=== PATIENT | male | born 2000 | race Caucasian/White ===

== ENCOUNTER 2024-02-06 23:56 | Emergency (ER) | payer OTHER ==
[2024-02-07 00:10] VITALS: BP 145/87; PULSE 89; RESP 18; TEMP 99.4; BMI 34.3
[2024-02-07] MEDS ORDERED: ACETAMINOPHEN 325 MG TABLET (FP) ONE (01:05)
[2024-02-07] MEDS: ACETAMINOPHEN 500 MG TABLET (FP) PO ONE (01:10)
== END 2024-02-07 01:46 | disposition home or self-care (01) ==
LOC: JER 23:56
DX: R07.89 Other chest pain (principal)
CPT/HCPCS: 71046-TC-FY; 93005; 93010; 99284-25